=== PATIENT | female | born 1980 | race Hispanic/Latino ===

== ENCOUNTER 2019-01-09 11:59 | Emergency (ER) | payer SELFPAY ==
[2019-01-09] MEDS ORDERED: KETOROLAC TROMETHAMINE INJ 30 MG/ML VIAL IM ONE (13:13)
[2019-01-09] MEDS ORDERED: KETOROLAC TROMETHAMINE INJ 30 MG/ML VIAL IV ONE (13:13)
--- NOTE | 2019-01-09 13:25 | ED.PDOC ---
History of Present Illness - General Chief Complaint: Back Pain or Injury Stated Complaint: R lower back pain Time Seen by Provider: 01/09/19 12:57 Source: patient Exam Limitations: no limitations - History of Present Illness Initial Comments: Patient presents with right lower back pain since waking up this morning. It is sharp, non-radiating, constant, no exacerbating nor alleviating factors, no previous episodes. She denies any associated symptoms. Denies dysuria, frequency, or hematuria. No other complaints. Timing/Duration: 4-6 hours Severity: moderate Improving Factors: nothing Worsening Factors: nothing Associated Symptoms: denies symptoms Allergies/Adverse Reactions: Allergies NO KNOWN ALLERGY Allergy (Verified 01/09/19 12:13) Home Medications: Ambulatory Orders Cyclobenzaprine HCl [Flexeril] 10 mg PO BEDTIME #15 tab 01/09/19 Tramadol HCl 50 mg PO Q6HRS PRN #15 tab 01/09/19 Review of Systems - Review of Systems Constitutional: States: no symptoms reported EENTM: States: no symptoms reported Respiratory: States: no symptoms reported Cardiology: States: no symptoms reported Gastrointestinal/Abdominal: States: no symptoms reported Genitourinary: States: see HPI Musculoskeletal: States: no symptoms reported Skin: States: no symptoms reported Neurological: States: no symptoms reported Endocrine: States: no symptoms reported Hematologic/Lymphatic: States: no symptoms reported Past Medical History (General) - Patient Medical History Hx Stroke: No Hx of COPD: No Hx Cardiac Disorders: No Hx Hypertension: Yes Hx Diabetes: No Hx Cancer: No Surgical History: other - Vaccination History Hx Tetanus, Diphtheria Vaccination: Yes Hx Influenza Vaccination: No - Social History Hx Tobacco Use: Yes Hx Alcohol Use: Yes Hx Substance Use: No Hx Substance Use Treatment: No Hx Depression: Yes Family Medical History - Family History Mother Grandparents Living Status: Unknown Hx Family Cancer: Yes Physical Exam - Physical Exam General Appearance: Alert Eye Exam: bilateral normal Ears, Nose, Throat: normal ENT inspection Neck: non-tender, full range of motion, supple Respiratory: lungs clear, normal breath sounds Cardiovascular/Chest: normal peripheral pulses, regular rate, rhythm Gastrointestinal/Abdominal: normal bowel sounds, non tender, soft Back Exam: CVA tenderness (R) Extremity: normal range of motion, non-tender, normal inspection Neurologic: no motor/sensory deficits, alert, normal mood/affect, oriented x 3 Skin Exam: normal color Lymphatic: no adenopathy Progress - Progress Progress: 01/09/19 16:20 Laboratory Tests 01/09/19 01/09/19 01/09/19 12:16 13:28 13:28 WBC 8.5 RBC 4.75 Hgb 16.3 H Hct 47.8 H MCV 100.6 H MCH 34.3 H MCHC 34.1 RDW 16.3 H Plt Count 237 MPV 7.8 Absolute Neuts (auto) 5.60 Absolute Lymphs (auto) 1.90 Absolute Monos (auto) 0.90 H Absolute Eos (auto) 0.10 Absolute Basos (auto) 0.10 Neutrophils % 65.3 Lymphocytes % 22.6 Monocytes % 10.1 H Eosinophils % 1.3 Basophils % 0.7 Sodium 138 Potassium 3.4 L Chloride 101 Carbon Dioxide 26 Anion Gap 14.4 BUN < 5 L Creatinine 0.56 L BUN/Creatinine Ratio 8.9 L Random Glucose 88 Serum Osmolality 272.4 L Calcium 9.3 Total Bilirubin 0.7 AST 110 H ALT 103 H Alkaline Phosphatase 89 Serum Total Protein 7.8 Albumin 4.2 Globulin 3.6 H Albumin/Globulin Ratio 1.2 Lipase Urine Color Yellow Urine Appearance Clear Urine pH 6.0 Ur Specific [place] 1.010 Urine Protein 30 Urine Glucose (UA) Negative Urine Ketones Trace Urine Blood Large H Urine Nitrite Negative Urine Bilirubin Negative Urine Urobilinogen 0.2 Ur Leukocyte Esterase Negative Urine RBC 3-5 H Urine WBC 0-1 Ur Epithelial Cells 0-1 Urine Bacteria Rare Urine HCG, Qual 01/09/19 01/09/19 13:28 Unknown WBC RBC Hgb Hct MCV MCH MCHC RDW Plt Count MPV Absolute Neuts (auto) Absolute Lymphs (auto) Absolute Monos (auto) Absolute Eos (auto) Absolute Basos (auto) Neutrophils % Lymphocytes % Monocytes % Eosinophils % Basophils % Sodium Potassium Chloride Carbon Dioxide Anion Gap BUN Creatinine BUN/Creatinine Ratio Random Glucose Serum Osmolality Calcium Total Bilirubin AST ALT Alkaline Phosphatase Serum Total Protein Albumin Globulin Albumin/Globulin Ratio Lipase 38 Urine Color Urine Appearance Urine pH Ur Specific Lou[place] Urine Protein Urine Glucose (UA) Urine Ketones Urine Blood Urine Nitrite Urine Bilirubin Urine Urobilinogen Ur Leukocyte Esterase Urine RBC Urine WBC Ur Epithelial Cells Urine Bacteria Urine HCG, Qual Negative CT ab/pelvis showed no acute pathology. No stones. Patient received Toradol and said it helped "a little". She was sleeping during much of her E.R. stay and did not seem to be in distress. She was also given Norflex 60 mg IV x one with "a little" relief. This is most likely musculoskeletal. She was given instructions for the care of back pain. I asked her further about her alcohol intake because of the elevated LFTs and she said she drinks 3 or more drinks more than three times per week. I cautioned her that she had a "fatty liver" and recommended cessation of alcohol. She was given an RX for Toradol and for Flexeril and instructed not to drink alcohol in conjunction with those medications as well as not to drive. Care instructions given. E.R. warnings given. Questions were elicited and answered. Patient voiced understanding and a greement with the plan. Departure - Departure Clinical Impression: Low back pain Disposition: Discharge to Home or Self Care Condition: Good Departure Forms: ED Discharge - Pt. Copy, Patient Portal Self Enrollment Instructions: DI for Low Back Pain, Alcohol Use - When Is Drinking a Problem?, Alcohol Abuse and Alcoholism (DC) Diet: other - stop alcohol intake Activity: increase activity as tolerated Referrals: MARCELO JACKSON [Primary Care Provider] - 1-2 Weeks Prescriptions: Tramadol HCl 50 mg PO Q6HRS PRN #15 tab PRN Reason: Pain Cyclobenzaprine HCl [Flexeril] 10 mg PO BEDTIME #15 tab Home Medications: Ambulatory Orders Cyclobenzaprine HCl [Flexeril] 10 mg PO BEDTIME #15 tab 01/09/19 Tramadol HCl 50 mg PO Q6HRS PRN #15 tab 01/09/19 Additional Instructions: Activity as tolerated. Do not lift more than 10 pounds until cleared by your regular doctor. See your regular doctor next week. Do not drink alcohol or drive when taking cyclobenzaprine (Flexeril) or Tramadol. You should stop drinking alcohol because it is causing fat deposits in your liver and an increase in liver enzymes. This can lead to cirrhosis. Talk to your regular doctor about quitting.
--- NOTE | 2019-01-09 14:02 | CT ---
EXAM DESCRIPTION: Abdoment/Pelvis w/o Contrast CLINICAL HISTORY: 39 years, Female, right flank pain COMPARISON: None. TECHNIQUE: CT of the abdomen and pelvis is performed according to non contrast , renal stone protocol. FINDINGS: The lung bases are clear. The Liver, spleen, and pancreas are normal in contour. There is diffuse fatty infiltration of the liver. No calcified gallstones. The right kidney is normal in contour without hydronephrosis, nephrolithiasis, or perinephric fluid collection. The left kidney is normal in contour without hydronephrosis, nephrolithiasis, or perinephric fluid collection. The ureters are unremarkable without stone. The partially distended bladder is normal in appearance. No bowel obstruction. The appendix is normal. There is no lymphadenopathy, inflammation, or free fluid observed. No acute osseous abnormality. IMPRESSION: 1. No urinary tract calculi. 2. No ureterohydronephrosis. 3. Mild diffuse fatty infiltration of the liver. This exam was performed according to our departmental dose-optimization program, which includes automated exposure control, adjustment of the mA and/or kV according to patient size and/or use of iterative reconstruction technique. Electronically signed by: Ruddy Arrieta DO 01/09/2019 2:00 PM CDT
[2019-01-09] MEDS ORDERED: ORPHENADRINE CITRATE 30 MG/ML AMP IV ONE (15:18)
[2019-01-09 16:53] VITALS: BP 198/103; TEMP 98.3; O2SAT 98
== END 2019-01-09 16:40 | disposition home or self-care (01) ==
LOC: ER 11:59
DX: M54.5 Low back pain (principal); F32.9 Major depressive disorder, single episode, unspecified; I10 Essential (primary) hypertension; Z87.891 Personal history of nicotine dependence
CPT/HCPCS: 74176; 80053; 81001; 81025; 83690; 85025; J1885; J2360